=== PATIENT | female | born 1950 | race Caucasian/White ===

== ENCOUNTER 2021-01-14 11:50 | Outpatient (CLI) | payer MEDICARE | END 2021-01-14 23:59 | disposition home or self-care (01) | LOC: CFH 11:50 | PROVIDERS: ATTEND Family Medicine | DX: Z02.9 Encounter for administrative examinations, unspecified (principal) ==

== ENCOUNTER 2021-04-16 13:00 | Outpatient (CLI) | payer MEDICARE ==
[~2021-04-16 13:00] MED LIST changes: +OMNIPAQUE 350 MG/ML, 100ML BOTTLE ONE
[2021-04-25] MEDS ORDERED: OXYC5TAB2 PO (07:20)
[2021-04-25] MEDS ORDERED: ACET-1600 PO (07:20)
[2021-04-25] MEDS ORDERED: IBUP-1223 PO (07:20)
== END 2021-04-16 23:59 | disposition home or self-care (01) ==
LOC: CFH 13:00
PROVIDERS: ATTEND Surgery
DX: C34.10 Malignant neoplasm of upper lobe, unspecified bronchus or lung (principal); R91.8 Other nonspecific abnormal finding of lung field; J84.9 Interstitial pulmonary disease, unspecified; E66.01 Morbid (severe) obesity due to excess calories; I25.10 Atherosclerotic heart disease of native coronary artery without angina pectoris; K76.0 Fatty (change of) liver, not elsewhere classified; I70.0 Atherosclerosis of aorta; M51.34 Other intervertebral disc degeneration, thoracic region; R59.0 Localized enlarged lymph nodes; Z87.891 Personal history of nicotine dependence
CPT/HCPCS: 71260; Q9967

== ENCOUNTER → 2021-04-16 | Outpatient (CLI) | payer MEDICARE ==
[~2021-04-16] MED LIST: ATOR20TA37 PO; AZEL137S4 NAS; FLUT9.9S NS; LISI-170 PO; LISI1TAB20 PO; OMEP-110 PO
[2021-04-16 09:50] LABS: BASOPHILS % (AUTO) 0 % (0-1); EOSINOPHILS % (AUTO) 3 % (1-7); LYMPHOCYTES % (AUTO) 13 % (22-44); MEAN CORPUSCULAR HEMOGLOBIN 24.9 pg (27.0-34.8); MEAN CORPUSCULAR HGB CONC 32.1 g/dL (32.4-35.8); MEAN PLATELET VOLUME 8.1 fL (7.4-10.4); MONOCYTES % (AUTO) 8 % (2-9); NEUTROPHILS % (AUTO) 76 % (42-75); PLATELET COUNT 246 x10^3/uL (130-400); RED BLOOD COUNT 4.45 x10^6/uL (3.82-5.3); RED CELL DISTRIBUTION WIDTH 16.7 % (9.6-15.2)
[2021-04-16 10:00] LABS: ALANINE AMINOTRANSFERASE 22 U/L (12-78); ALBUMIN 2.8 g/dL (3.4-5.0); ANION GAP 4 mmol/L (5-15); CALCIUM 8.8 mg/dL (8.5-10.1); CHLORIDE 104 mmol/L (98-107); CREATININE 1.03 mg/dL (0.55-1.02)
[2021-04-16 10:02] LABS: ALKALINE PHOSPHATASE 78 U/L (45-117); BILIRUBIN,TOTAL 0.3 mg/dL (0.2-1.0); TOTAL PROTEIN 7.1 g/dL (6.4-8.2)
[2021-04-16 10:07] LABS: INTERNATIONAL NORMALIZED RATIO 0.93 (0.93-1.1)
== END | disposition home or self-care (01) ==
LOC: STAR 09:01
PROVIDERS: ATTEND Surgery
DX: Z01.818 Encounter for other preprocedural examination (principal); Z20.822 Contact with and (suspected) exposure to COVID-19
CPT/HCPCS: 36415; 80053; 85025; 85610; 85730; 93005; U0003; U0005